=== PATIENT | female | born 1995 | race Asian ===

== ENCOUNTER 2018-10-13 13:57 | Emergency (ER) | payer OTHER, MEDICAID, BC ==
[~2018-10-13] VITALS: Ht 167.6 cm; Wt 50.3 kg
[2018-10-13 14:00] VITALS: BP 120/69
--- NOTE | 2018-10-13 16:20 | NUR ---
PT AMULATES TO BED 6 AT THIS TIME W/ STEADY GAIT
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
[2018-10-13 16:59] VITALS: BP 122/70
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
== END 2018-10-13 16:59 | disposition home or self-care (01) ==
LOC: MED 13:57
DX: S09.90XA Unspecified injury of head, initial encounter (principal); H53.149 Visual discomfort, unspecified; V49.40XA Driver injured in collision with unspecified motor vehicles in traffic accident, initial encounter; Y93.89 Activity, other specified; Y92.488 Other paved roadways as the place of occurrence of the external cause; Y99.8 Other external cause status
CPT/HCPCS: 70450; 72125; 99284